=== PATIENT | female | born 1980 | race Caucasian/White ===

== ENCOUNTER 2020-12-05 13:18 | Emergency (ER) | payer OTHER ==
[~2020-12-05] VITALS: Ht 170.2 cm; Wt 78.5 kg
[2020-12-05 13:26] VITALS: BP 120/61; Ht 170.2 cm; Wt 78.5 kg
[2020-12-05 15:18] LABS: BASOPHIL % 0.3 % (0.2-1.3); PLATELET COUNT 254 x10^3mcL (179-408); RED CELL DISTRIBUTION WIDTH 12.2 % (12.3-17.7)
[2020-12-05 16:00] LABS: CARBON DIOXIDE 26.1 mmol/L (21-32); CHLORIDE SERUM 103 mmol/L (98-107); CREATININE SERUM 0.7 mg/dL (0.6-1.0); GFR1 > 60 mL/min; GLUCOSE SERUM 100 mg/dL (74-106); POTASSIUM SERUM 4.1 mmol/L (3.5-5.1); SODIUM SERUM 142 mmol/L (136-145)
[2020-12-05 16:11] LABS: rbc morphology (normal/abnorm) NORMAL (NORMAL)
[2020-12-05 16:13] LABS: ALBUMIN 3.7 g/dL (3.4-5.0); ALKALINE PHOSPHATASE 48 U/L (46-116); ALT/SGPT 29 U/L (14-59); AST/SGOT 14 U/L (15-37); BILIRUBIN TOTAL 0.28 mg/dL (0.20-1.00); FREE T4 1.11 ng/dL (0.76-1.46); MAGNESIUM 1.8 mg/dL (1.8-2.4)
== END 2020-12-05 16:31 | disposition home or self-care (01) ==
LOC: ED 13:18
PROVIDERS: Student in an Organized Health Care Education/Training Program
DX: I49.3 Ventricular premature depolarization (principal); F41.9 Anxiety disorder, unspecified
CPT/HCPCS: 84439